=== PATIENT | female | born 1995 | race Caucasian/White ===

== ENCOUNTER 2017-01-05 03:16 | Emergency (ER) | payer MEDICAID ==
[2017-01-05 04:01] LABS: RBC URINE 3 /hpf (0-3); URINE BACTERIA RARE (<OCC); URINE BILIRUBIN NEGATIVE (NEGATIVE); URINE BLOOD NEGATIVE (NEGATIVE); URINE COLOR Yellow (YELLOW); URINE GLUCOSE (UA) NORMAL (Normal); URINE KETONE TRACE mg/dL (NEGATIVE); URINE LEUKOCYTE ESTERASE 1+ Leu/uL (Negative); URINE PROTEIN NEGATIVE (NEGATIVE); WBC URINE 7 /hpf (0-5)
[2017-01-05] MEDS ORDERED: Sodium Chloride 0.9% 500 ML IV ONE (04:06)
[2017-01-05 04:43] LABS: BASO % 0.5 % (0.0-2.0); EOS # 0.1 K/uL (0.0-0.7); EOS % 1.2 % (0.0-4.0); LYMPH # 2.1 K/uL (1.0-4.3); LYMPH % 30.9 % (20.0-40.0); MEAN CELL VOLUME 93.3 fL (81.0-99.0); MEAN CORPUSCULAR HEMOGLOBIN 32.2 pg (27.0-31.0); MEAN CORPUSCULAR HGB CONC 34.5 g/dL (33.0-37.0); MONO # 0.8 K/uL (0.0-0.8); MONO % 12.2 % (0.0-10.0); RED CELL DISTRIBUTION WIDTH 14.3 % (11.5-14.5); WHITE BLOOD COUNT 6.9 K/uL (4.8-10.8)
--- NOTE | 2017-01-05 04:43 | C.PDOC ---
History Of Present Illness 21 year old female who presents to the ER with a complaint of intermittent epigastric pain and vomiting for the past 2 weeks. Patient has not been evaluated for the pain before; denies diarrhea, bloody stool, sick contact, recent travel, new medication, urinary symptoms, neck pain, or vaginal complaints. Time Seen by Provider: 01/05/17 03:35 Chief Complaint (Nursing): Abdominal Pain History Per: Patient History/Exam Limitations: no limitations Onset/Duration Of Symptoms: Days Current Symptoms Are (Timing): Still Present Location Of Pain/Discomfort: Epigastric Radiation Of Pain To:: None Quality Of Discomfort: Unable To Describe Associated Symptoms: Vomiting. denies: Fever, Urinary Symptoms, Other (Neck pain, vaginal complaints) Exacerbating Factors: None Alleviating Factors: None Recent travel outside of the [place]: No Abnormal Vaginal Bleeding: No Past Medical History Reviewed: Historical Data, Nursing Documentation, Vital Signs Vital Signs: Last Vital Signs Temp 97.8 F 01/05/17 03:27 Pulse 76 01/05/17 03:27 Resp 18 01/05/17 03:27 BP 103/67 01/05/17 03:27 Pulse Ox 97 01/05/17 05:19 - Medical History PMH: Asthma Surgical History: No Surg Hx - [facility] Procedures CLOSURE SKIN & SUBCUTANEOUS NEC (01/21/14) Family History: States: Unknown Family Hx - Social History Hx Tobacco Use: No Hx Alcohol Use: No Hx Substance Use: No - Immunization History Hx Tetanus Toxoid Vaccination: Yes Hx Influenza Vaccination: No Hx Pneumococcal Vaccination: No Review Of Systems Constitutional: Negative for: Fever, Chills Gastrointestinal: Positive for: Vomiting, Abdominal Pain. Negative for: Diarrhea, Melena, Hematochezia Genitourinary: Negative for: Dysuria, Frequency, Hematuria, Vaginal Discharge, Vaginal Bleeding Physical Exam - Physical Exam Appears: Non-toxic, No Acute Distress Skin: Normal Color, Warm, Dry Head: Atraumatic, Normacephalic Eye(s): bilateral: Normal Inspection, EOMI Oral Mucosa: Moist Chest: Symmetrical Cardiovascular: Rhythm Regular Respiratory: Normal Breath Sounds, No Rales, No Rhonchi, No Wheezing Gastrointestinal/Abdominal: Bowel Sounds (normal), Soft, Tenderness (Epigastric) , No Distention, No Guarding, No Rebound Neurological/Psych: Oriented x3, Normal Speech, Normal Cognition ED Course And Treatment - Laboratory Results Result Diagrams: 01/05/17 04:41 01/05/17 04:41 O2 Sat by Pulse Oximetry: 97 (Room air) Pulse Ox Interpretation: Normal Progress Note: Blood work, urinalysis, pepcid, IV fluids, and zofran administered. On reevaluation, patient reports her pain has resolved and is able to tolerate PO in the ER. Will discharge home with Rx and instructions to follow up with PMD for further evaluation. Disposition Counseled Patient/Family Regarding: Diagnosis, Need For Followup, Rx Given - Disposition Referrals: [facility] [Outside] Disposition: HOME/ ROUTINE Disposition Time: 05:28 Condition: STABLE Additional Instructions: Increase PO fluids Avoid fried, spicy foods, red meats, caffeine, Advil, motrin Take meds as directed Follow up with PMD or in clinic for GI referral Return to ER if worse Prescriptions: Aluminum Hydroxide/Magnesium H [Maalox 30 ml] 30 ml PO BID #100 ml Famotidine [Pepcid] 20 mg PO DAILY #20 tab Ondansetron [Zofran Odt] 4 mg PO TID #6 odt Instructions: Gastritis (ED) Forms: [employer] (Irish), School Excuse - Clinical Impression Clinical Impression: Gastritis - Scribe Statement The provider has reviewed the documentation as recorded by the Scribe Vitaliy Duran All medical record entries made by the Scribe were at my direction and personally dictated by me. I have reviewed the chart and agree that the record accurately reflects my personal performance of the history, physical exam, medical decision making, and the department course for this patient. I have also personally directed, reviewed, and agree with the discharge instructions and disposition.
[2017-01-05 04:55] LABS: CHLORIDE 101 mmol/L (98-107)
[2017-01-05 04:56] LABS: POTASSIUM 4.2 mmol/L (3.6-5.2); SODIUM 137 mmol/L (132-148)
[2017-01-05 04:58] LABS: ALKALINE PHOSPHATASE 84 U/L (38-126); AST/SGOT 34 U/L (14-36); BILIRUBIN,TOTAL 1.3 mg/dL (0.2-1.3); BLOOD UREA NITROGEN 6 mg/dL (7-17); CARBON DIOXIDE 24 mmol/L (22-30); GFR AFRICAN-AMERICAN > 60; TOTAL PROTEIN 8.9 g/dL (6.3-8.3)
[2017-01-05 04:59] LABS: ALT/SGPT 50 U/L (9-52); CALCIUM 9.9 mg/dl (8.6-10.4); GLUCOSE,RANDOM 89 mg/dL (65-105)
[2017-01-05 05:35] VITALS: BP 103/68; PULSE 57; RESP 16; TEMP 97.9; O2SAT 99
== END 2017-01-05 05:40 | disposition home or self-care (01) ==
LOC: C.ER 03:16
DX: K29.70 Gastritis, unspecified, without bleeding (principal)
CPT/HCPCS: 80053; 81001; 83690; 84703; 85025; 96361; 96374; 96375; 99284; J2405; J7040

== ENCOUNTER 2017-03-29 12:17 | Emergency (ER) | payer MEDICAID ==
[2017-03-29 12:37] VITALS: BMI 24.7
[2017-03-29 12:39] VITALS: TEMP 98.7; O2SAT 98
[2017-03-29] MEDS ORDERED: Lactated Ringer's 1,000 ML IV STA (13:03)
--- NOTE | 2017-03-29 13:04 | C.PDOC ---
History Of Present Illness 21 yo female w/o significant PMHx come in for evaluation of bodyaches, nausea, multiple episodes of non-bilious vomiting and watery, non-bloody diarrhea for past 2 days, (+)mild epigastric pain. Pt sts, was unable to tolerate liquids today. Otherwise, pt denies high fever, lethargy, drooling, cough, SOB, wheezing , hematemesis, melena, back pain, UTI sx, rash, denies recent travel or known sick contact. At the time of evaluation, pt is awake, comfortable, not in any apparent distress Time Seen by Provider: 03/29/17 12:40 Chief Complaint (Nursing): Flu-like Symptoms History Per: Patient Onset/Duration Of Symptoms: Gradual Past Medical History Reviewed: Historical Data, Nursing Documentation, Vital Signs Vital Signs: Last Vital Signs Temp 98.7 F 03/29/17 12:36 Pulse 67 03/29/17 14:23 Resp 18 03/29/17 14:23 BP 111/70 03/29/17 14:23 Pulse Ox 98 03/29/17 14:23 - Medical History PMH: Asthma Surgical History: No Surg Hx - [facility] Procedures CLOSURE SKIN & SUBCUTANEOUS NEC (01/21/14) Family History: States: Unknown Family Hx - Social History Hx Tobacco Use: No Hx Alcohol Use: No Hx Substance Use: No - Immunization History Hx Tetanus Toxoid Vaccination: No Hx Influenza Vaccination: Yes Hx Pneumococcal Vaccination: Yes Review Of Systems Except As Marked, All Systems Reviewed And Found Negative. Constitutional: Positive for: Malaise. Negative for: Fever, Chills ENT: Negative for: Nose Congestion, Throat Pain Cardiovascular: Negative for: Chest Pain Respiratory: Negative for: Cough, Shortness of Breath Gastrointestinal: Positive for: Nausea, Vomiting, Abdominal Pain, Diarrhea. Negative for: Melena, Hematochezia, Hematemesis Genitourinary: Negative for: Dysuria, Frequency Musculoskeletal: Negative for: Neck Pain, Back Pain Skin: Negative for: Rash Neurological: Negative for: Weakness, Numbness, Altered Mental Status, Headache , Dizziness Physical Exam - Physical Exam Appears: Well, Non-toxic, No Acute Distress Skin: Normal Color, Warm, Dry, No Rash Head: Normacephalic Eye(s): bilateral: PERRL Nose: No Flaring, No Discharge Oral Mucosa: Moist, No Drooling Tongue: Normal Appearing Lips: Normal Appearing Throat: No Erythema, No Drooling Neck: Trachea Midline, Supple Cardiovascular: Rhythm Regular Respiratory: No Decreased Breath Sounds, No Accessory Muscle Use, No Stridor, No Wheezing Gastrointestinal/Abdominal: Bowel Sounds (normal), Soft, Tenderness (mild epigastric), No Distention, No Guarding Back: No CVA Tenderness Extremity: Normal ROM, No Deformity, No Swelling Neurological/Psych: Oriented x3, Normal Speech ED Course And Treatment - Laboratory Results Result Diagrams: 03/29/17 13:38 03/29/17 13:38 Lab Interpretation: No Acute Changes Urine POC: Negative O2 Sat by Pulse Oximetry: 98 Pulse Ox Interpretation: Normal Progress Note: On re-eval, pt is afebrile, hemodynamicaly stable. Reports moderate improvement in sx. Non-toxic. Tolerate Po well in ED. PuslEOx 98% RA. ENT: no acute findings. neck: SUpple, (-) meningeal sign. Lungs: CTA B/L , BS equal B/L. Abd: benign, (-) guarding, (-) rebound. Back: (-) CVA tenderness. Blood work review and appears without acute findings. UA (+) UTI. Rocephin given empirically, UCx-pending. Pt advised. ref. to F/u with PMD in 2-3 days for re-eavl. return if any new chanegs. Disposition Counseled Patient/Family Regarding: Studies Performed, Diagnosis, Need For Followup, Rx Given - Disposition Referrals: [facility] [Outside] Disposition: HOME/ ROUTINE Disposition Time: 14:15 Condition: STABLE Additional Instructions: ENCOURAGE FLUIDS TAKE MEDICATION PRESCRIBED FOLLOW UP WITH PMD IN 2-3 DAYS FOR RE-EVALUATION. RETURN TO ED IF ANY WORSENING OR NEW CHANGES. Prescriptions: Cefdinir [Omnicef] 300 mg PO BID #14 cap Cranberry Fruit Extract [Cranberry] 500 mg PO BID #20 capsule Instructions: Urinary Tract Infection in Women (ED) Forms: [facility] (Kyrgyz) - Clinical Impression Clinical Impression: UTI (urinary tract infection)
[2017-03-29] MEDS ORDERED: Lactated Ringer's 1,000 ML ONE (13:29)
[2017-03-29 13:45] LABS: BASO % 0.6 % (0.0-2.0); EOS # 0.3 K/uL (0.0-0.7); EOS % 4.7 % (0.0-4.0); HEMOGLOBIN 15.1 g/dL (11.0-16.0); LYMPH # 2.1 K/uL (1.0-4.3); LYMPH % 37.6 % (20.0-40.0); MEAN CELL VOLUME 98.6 fL (81.0-99.0); MEAN CORPUSCULAR HEMOGLOBIN 32.9 pg (27.0-31.0); MEAN CORPUSCULAR HGB CONC 33.4 g/dL (33.0-37.0); MEAN PLATELET VOLUME 9.2 fL (7.2-11.7); MONO # 0.7 K/uL (0.0-0.8); MONO % 13.1 % (0.0-10.0); NEUT # 2.5 K/uL (1.8-7.0); NRBC % 0.1 % (0.0-2.0); RBC 4.58 Mil/uL (3.80-5.20); RED CELL DISTRIBUTION WIDTH 13.5 % (11.5-14.5); WHITE BLOOD COUNT 5.7 K/uL (4.8-10.8)
[2017-03-29 13:47] LABS: HCG,QUALITATIVE URINE NEGATIVE (NEGATIVE)
[2017-03-29 13:56] LABS: SQUAMOUS EPITHIAL 15 /hpf (0-5); URINE BACTERIA OCC (<OCC); URINE BILIRUBIN NEGATIVE (NEGATIVE); URINE BLOOD 3+ (NEGATIVE); URINE CLARITY Hazy (Clear); URINE COLOR Yellow (YELLOW); URINE GLUCOSE (UA) NORMAL (Normal); URINE LEUKOCYTE ESTERASE 3+ Leu/uL (Negative); URINE NITRATE NEGATIVE (NEGATIVE); URINE PROTEIN 1+ mg/dL (NEGATIVE)
[2017-03-29 14:00] LABS: ALB/GLOB RATIO 0.9 (1.0-2.1); ALT/SGPT 27 U/L (9-52); AST/SGOT 34 U/L (14-36); BLOOD UREA NITROGEN 6 mg/dL (7-17); CALCIUM 8.6 mg/dl (8.6-10.4); GFR AFRICAN-AMERICAN > 60; GFR NON-AFRICAN AMERICAN > 60; LIPASE 111 U/L (23-300)
[2017-03-29 15:51] VITALS: BP 115/72; PULSE 70; RESP 20
== END 2017-03-29 15:46 | disposition home or self-care (01) ==
LOC: C.ER 12:17
DX: N39.0 Urinary tract infection, site not specified (principal)
CPT/HCPCS: 80053; 81001; 83690; 84703; 85025; 87086; 96361; 96365; 96375; 99284; J0696; J2405; J7120

== ENCOUNTER 2017-09-22 22:19 | Emergency (ER) | payer MEDICAID ==
[2017-09-22 22:19] VITALS: BMI 24.7
[2017-09-22 22:35] VITALS: PULSE 66; TEMP 97.8; O2SAT 98
--- NOTE | 2017-09-22 22:58 | C.PDOC ---
"History Of Present Illness Patient seen tonight due to lower abominal pain and scanty vaginal spotting after sexz tonite. Patien is . Chief Complaint (Nursing): Abdominal Pain Past Medical History Vital Signs: Last Vital Signs Temp 97.8 F 09/22/17 22:29 Pulse 66 09/22/17 22:29 Resp 20 09/22/17 22:29 BP 105/70 09/22/17 22:29 Pulse Ox 98 09/23/17 00:20 - Medical History PMH: Asthma Surgical History: No Surg Hx - [facility] Procedures CLOSURE SKIN & SUBCUTANEOUS NEC (01/21/14) Family History: States: Unknown Family Hx - Social History Hx Tobacco Use: No Hx Alcohol Use: No Hx Substance Use: No - Immunization History Hx Tetanus Toxoid Vaccination: No Hx Influenza Vaccination: No Hx Pneumococcal Vaccination: No Review Of Systems Constitutional: Negative for: Fever, Chills, Sweats Cardiovascular: Negative for: Chest Pain, Palpitations, Orthopnea Respiratory: Negative for: Cough, Shortness of Breath Gastrointestinal: Positive for: Abdominal Pain. Negative for: Nausea, Vomiting , Diarrhea, Constipation, Melena, Hematochezia, Hematemesis, Rectal Pain Genitourinary: Positive for: Vaginal Bleeding, Pelvic Pain. Negative for: Dysuria, Frequency, Incontinence, Hematuria, Rash Musculoskeletal: Negative for: Neck Pain, Shoulder Pain, Arm Pain Skin: Negative for: Rash, Lesions Neurological: Negative for: Weakness, Numbness, Incoordination, Change in Speech , Confusion, Seizures, Headache Psych: Negative for: Anxiety, Depression, Psychosis, Suicidal ideation, Withdrawal Physical Exam - Physical Exam Appears: Well, Non-toxic, No Acute Distress Skin: Normal Color, Warm, Dry Eye(s): bilateral: Normal Inspection, PERRL, EOMI Nose: Normal Throat: Normal Neck: Normal Chest: Symmetrical, No Deformity, No Tenderness Cardiovascular: Rhythm Regular, No Edema, No Murmur Respiratory: Normal Breath Sounds Gastrointestinal/Abdominal: Normal Exam, Tenderness (mild hypogastric tenderness ), No Mass, No Distention, No Guarding, No Rebound Back: Normal Inspection Pelvic: Normal External Exam, Normal Speculum Exam, No Vaginal Bleeding, No Vaginal Discharge, No Cervical Motion Tenderness, No Cervix Open, No Adnexal Tenderness, Other (mild hypogastric tendeness) Extremity: Normal ROM Neurological/Psych: Oriented x3, Normal Speech, Normal Cognition Gait: Steady ED Course And Treatment - Laboratory Results Result Diagrams: 09/22/17 23:04 09/22/17 23:04 O2 Sat by Pulse Oximetry: 98 (ON RA) Pulse Ox Interpretation: Normal - CT Scan/US Pelvic US Other Rad Studies (CT/US): Read By Radiologist, Radiology Report Reviewed CT/US Interpretation: EXAM: US , Transvaginal. CLINICAL HISTORY: 22 years old, female; Signs and symptoms; Lmp or gestational age (in weeks): 6-9-18 ; Other: Vag. bleed; ; Additional info: Vaginal bleed/ pain. TECHNIQUE : Real-time transvaginal obstetrical ultrasound of the maternal pelvis and a first trimester . with image documentation. Transvaginal imaging was used for better evaluation of the fetus and. adnexa. COMPARISON: No relevant prior studies available. FINDINGS: Gestation: There is an intrauterine gestational sac with the developing fetus. Heart rate 97 bpm. A yolk sac is visible. The gestational sac measures 1.3 cm 5 weeks 4 days gestational age. There is a pole CRL 2.9 mm 5 weeks 6 days JYALIN 05/20/2018. Clinical gestational age 4 weeks 5 days JAYLIN 05/27/2018. Placenta/amniotic fluid: Cannot be adequately evaluated due to the early gestational age. Uterus/cervix: Unremarkable. No myometrial mass. 9.2 cm x 5.4 cm x 5.4 cm. The cervix measures 3.2 cm the cervical os is closed. Ovaries: RIGHT ovary measures 5.9 cm x 2.6 cm x 3.1 cm. Simple cyst 2.3 cm x 1.5 cm x 1.9 cm. Corpus luteum cyst 1.9 cm 1.9 cm x 2.3 cm. LEFT ovary is unremarkable measuring 2.4 cm x 2.4 cm x 1.2 cm. Small echogenic calcifications are seen. Free fluid: No free fluid. IMPRESSION: 1. Single living intrauterine gestation. 2. Gestational age 5 weeks 6 days JAYLIN 05/20/2018. OMARI ESPINOSA | Preliminary Radiology Report. CONFIDENTIALITY STATEMENT. This report is intended only for the use of the referring physician, and only in accordance with law, If you received this in error, call [phone]. Page 2 of 2. 3. RIGHT ovarian corpus luteum cyst and benign cyst. 4. Negative LEFT ovary. 5. Negative uterus and cervix. Thank you for allowing us to participate in the care of your patient. Dictated and Authenticated by: Shadi Ornelas MD. 09/23/2017 12:16 AM Eastern Time ([place] & [place]) Disposition Counseled Patient/Family Regarding: Diagnosis - Disposition Referrals: [facility] [Outside] Disposition: HOME/ ROUTINE Disposition Time: 00:20 Condition: STABLE Instructions: Bleeding With (DC) Forms: [facility] (Uzbek), Gen Discharge Inst Argentine Print Language: CAPE VERDEAN - POA Present On Arrival: None - Clinical Impression Clinical Impression: Vaginal bleeding affecting early"
[2017-09-22 23:10] LABS: BASO % 0.6 % (0.0-2.0); EOS # 0.1 K/uL (0.0-0.7); HEMOGLOBIN 14.2 g/dL (11.0-16.0); LYMPH # 2.1 K/uL (1.0-4.3); LYMPH % 28.4 % (20.0-40.0); MEAN CELL VOLUME 96.7 fL (81.0-99.0); MEAN CORPUSCULAR HEMOGLOBIN 33.4 pg (27.0-31.0); MEAN CORPUSCULAR HGB CONC 34.6 g/dL (33.0-37.0); MEAN PLATELET VOLUME 9.2 fL (7.2-11.7); MONO % 12.9 % (0.0-10.0); NEUT # 4.3 K/uL (1.8-7.0); NEUT % 57.1 % (50.0-75.0); RBC 4.26 Mil/uL (3.80-5.20); RED CELL DISTRIBUTION WIDTH 11.8 % (11.5-14.5); WHITE BLOOD COUNT 7.5 K/uL (4.8-10.8)
[2017-09-22 23:15] LABS: INR 1.1
[2017-09-22 23:23] LABS: ALB/GLOB RATIO 1.3 (1.0-2.1); ALBUMIN 4.3 g/dL (3.5-5.0); ALT/SGPT 25 U/L (9-52); AST/SGOT 22 U/L (14-36); BLOOD UREA NITROGEN 9 mg/dL (7-17); GFR AFRICAN-AMERICAN > 60; GFR NON-AFRICAN AMERICAN > 60
[2017-09-23 00:33] LABS: SQUAMOUS EPITHIAL 1 /hpf (0-5); URINE BILIRUBIN NEGATIVE (NEGATIVE); URINE BLOOD NEGATIVE (NEGATIVE); URINE CLARITY Clear (Clear); URINE COLOR Straw (YELLOW); URINE GLUCOSE (UA) NORMAL (Normal); URINE LEUKOCYTE ESTERASE NEG Leu/uL (Negative); URINE PROTEIN NEGATIVE (NEGATIVE); URINE UROBILINOGEN NORMAL mg/dL (0.2-1.0)
[2017-09-23 00:47] VITALS: BP 108/67; RESP 16
--- NOTE | 2017-09-23 09:56 | US ---
Date of service: 09/22/2017 PROCEDURE: Pelvic ultrasound HISTORY: vaginal bleed/ pain COMPARISON: None available. TECHNIQUE: Standard protocol for this study/examination. FINDINGS: LMP: 08/20/2017 Prior examinations from the current : None TECHNIQUE: Real-time 2D imaging, duplex and color Doppler. FINDINGS: Cardiac activity: Present Rate: 98 BPM Measurements: Anita rump length: 0.29 cm Gestational age based on CRL 5 weeks 6 days Gestational age 5 weeks 4 days based on gestational sac measurement 1.33 cm Gestational age derived from LMP: 4 weeks 5 days JAYLIN based on LMP: 05/27/2018 JAYLIN based on biometry: 12/11/2018 Gestational concordance documented Yolk sac identified Uterus: Unremarkable. Cervix: No Cervical abnormalities: Negative examination for cervical dilatation or effacement. Closed cervix measuring 3.22 cm Subchorionic hemorrhage: None UTERUS: 5.4 x 5.7 x 9.2 cm. ADNEXA: Right: 2.6 x 3.1 cm. Two simple cysts measuring 1.5 x 1.9 x 3.3 cm and 1.9 x 1.9 x 2.3 cm Normal Doppler arterial waveform documented. Left: 1.2 x 2.4 x 2.4 cm. Normal Doppler arterial waveform documented Fluid in the cul-de-sac: None. IMPRESSION: Five weeks 5 days live intrauterine gestation. bradycardia noted. Additional benign and/or incidental findings described above. Concordant results (preliminary interpretation) provided by [facility]. Procedure Completed: 23:20 Preliminary ([facility]) Report: Dictated and Authenticated: 00:16 September 23, 2017. Final Interpretation: 09:54
== END 2017-09-23 00:49 | disposition home or self-care (01) ==
LOC: C.ER 22:19
DX: O20.9 Hemorrhage in early pregnancy, unspecified (principal); Z3A.01 Less than 8 weeks gestation of pregnancy
CPT/HCPCS: 76817; 80053; 81001; 84702; 84703; 85025; 85610; 85730; 86850; 86900; 96374; 99285; J2405

== ENCOUNTER 2017-12-05 01:42 | Emergency (ER) | payer MEDICAID ==
[2017-12-05 01:42] VITALS: BMI 24.7
[2017-12-05 02:07] LABS: HCG,QUALITATIVE URINE POSITIVE (NEGATIVE)
[2017-12-05] MEDS ORDERED: Sodium Chloride 0.9% 1,000 ML IV ONE (02:09)
[2017-12-05 02:11] LABS: SQUAMOUS EPITHIAL 30 /hpf (0-5); URINE BACTERIA RARE (<OCC); URINE BILIRUBIN NEGATIVE (NEGATIVE); URINE BLOOD NEGATIVE (NEGATIVE); URINE CLARITY Hazy (Clear); URINE COLOR Yellow (YELLOW); URINE GLUCOSE (UA) NORMAL (Normal); URINE LEUKOCYTE ESTERASE 3+ Leu/uL (Negative); URINE PROTEIN NEGATIVE (NEGATIVE)
[2017-12-05] MEDS ORDERED: cefTRIAXone IV 1 gm in Dextros 50 ML IV STA (02:13)
[2017-12-05] MEDS ORDERED: Sodium Chloride 0.9% 1,000 ML ONE (02:16)
[2017-12-05 02:25] LABS: BASO % 0.6 % (0.0-2.0); EOS # 0.1 K/uL (0.0-0.7); EOS % 1.7 % (0.0-4.0); LYMPH # 1.6 K/uL (1.0-4.3); LYMPH % 19.9 % (20.0-40.0); MEAN CELL VOLUME 93.8 fL (81.0-99.0); MEAN CORPUSCULAR HEMOGLOBIN 33.1 pg (27.0-31.0); MEAN CORPUSCULAR HGB CONC 35.3 g/dL (33.0-37.0); MONO # 1.4 K/uL (0.0-0.8); NEUT # 4.9 K/uL (1.8-7.0); NEUT % 60.8 % (50.0-75.0); RBC 3.34 Mil/uL (3.80-5.20); RED CELL DISTRIBUTION WIDTH 12.3 % (11.5-14.5)
[2017-12-05] MEDS ORDERED: cefTRIAXone 1 gm 1 GM/100 ML BAG IVPB ONE (02:29)
[2017-12-05 02:48] LABS: ALB/GLOB RATIO 1.1 (1.0-2.1); ALBUMIN 3.8 g/dL (3.5-5.0); BLOOD UREA NITROGEN 9 mg/dL (7-17); CALCIUM 9.6 mg/dl (8.6-10.4); GFR NON-AFRICAN AMERICAN > 60
[2017-12-05 02:51] LABS: ALT/SGPT 104 U/L (9-52); AST/SGOT 92 U/L (14-36)
--- NOTE | 2017-12-05 02:54 | C.PDOC ---
History Of Present Illness 22 year old female presents to the ED for evaluation of lower back pain and abdominal pain which began two days ago. Patient also complains of vomiting today. Patient denies dysuria, hematuria, vaginal bleeding/discharge. Patient states she is currently ; she notes her last menstrual period was . Time Seen by Provider: 12/05/17 01:57 Chief Complaint (Nursing): Abdominal Pain History Per: Patient History/Exam Limitations: no limitations Onset/Duration Of Symptoms: Hrs, Days Current Symptoms Are (Timing): Still Present Additional History Per: Patient Past Medical History Reviewed: Historical Data, Nursing Documentation, Vital Signs Vital Signs: Last Vital Signs Temp 98.5 F 12/05/17 03:20 Pulse 83 12/05/17 03:20 Resp 17 12/05/17 03:20 BP 115/68 12/05/17 03:20 Pulse Ox 99 12/05/17 04:16 - Medical History PMH: Asthma Denies: Chronic Kidney Disease Surgical History: No Surg Hx - [facility] Procedures CLOSURE SKIN & SUBCUTANEOUS NEC (01/21/14) Family History: States: Unknown Family Hx - Social History Hx Tobacco Use: No Hx Alcohol Use: No Hx Substance Use: No - Immunization History Hx Tetanus Toxoid Vaccination: No Hx Influenza Vaccination: No Hx Pneumococcal Vaccination: No Review Of Systems Gastrointestinal: Positive for: Nausea, Vomiting, Abdominal Pain Genitourinary: Negative for: Dysuria, Hematuria, Vaginal Discharge, Vaginal Bleeding Neurological: Positive for: Dizziness Physical Exam - Physical Exam Appears: Non-toxic, No Acute Distress Skin: Normal Color, Warm, Dry Head: Atraumatic, Normacephalic Eye(s): bilateral: Normal Inspection Oral Mucosa: Moist Neck: Supple Chest: Symmetrical, No Deformity, No Tenderness Cardiovascular: Rhythm Regular, No Murmur Respiratory: Normal Breath Sounds, No Rales, No Rhonchi, No Wheezing Gastrointestinal/Abdominal: Soft, No Tenderness, No Guarding, No Rebound Back: No Vertebral Tenderness, No Paraspinal Tenderness Extremity: Normal ROM, Capillary Refill (less than 2 seconds ) Neurological/Psych: Oriented x3, Normal Speech Gait: Steady ED Course And Treatment - Laboratory Results Result Diagrams: 12/05/17 02:23 12/05/17 02:23 O2 Sat by Pulse Oximetry: 99 (on RA) Pulse Ox Interpretation: Normal Medical Decision Making Medical Decision Making: Impression: 22 year old female with lower back and abdominal pain Plan: * bloodwork * urinalysis * Zofran IVP * Rocephin IV * IV fluids Progress: Bloodwork and urinalysis ordered and reviewed. UA shows UTI. Protonix IVP, Reglan IV, Zofran IVP and IV Fluids given. On reassessment, patient is resting comfortably, tolerating PO intake, and reports an improvement in her symptoms. Patient is stable for discharge. She is advised to follow up with her PMD within 1-2 days for further evaluation. Disposition Counseled Patient/Family Regarding: Diagnosis, Need For Followup, Rx Given - Disposition Referrals: [facility] [Outside] [facility] [Outside] Disposition: HOME/ ROUTINE Disposition Time: 02:54 Condition: STABLE Additional Instructions: Take antibiotic twice daily and be sure to finish taking all of antibiotic. Drink plenty of fluids. Follow up with your primary medical doctor or clinic in 2-5 days for further evaluation Prescriptions: Nitrofurantoin Macrocrystals [Macrobid] 1 cap PO BID #14 cap Instructions: Urinary Tract Infection, Adult (DC) Forms: [employer] (Lithuanian) - POA Present On Arrival: None - Clinical Impression Clinical Impression: UTI (urinary tract infection) - PA / SENIOR SALES ASSOCIATE / Resident Statement MD/DO has reviewed & agrees with the documentation as recorded. - Scribe Statement The provider has reviewed the documentation as recorded by the Scribe (Megan Harvey) All medical record entries made by the Scribe were at my direction and personally dictated by me. I have reviewed the chart and agree that the record accurately reflects my personal performance of the history, physical exam, medical decision making, and the department course for this patient. I have also personally directed, reviewed, and agree with the discharge instructions and disposition.
[2017-12-05 03:21] VITALS: BP 115/68; PULSE 83; RESP 17; TEMP 98.5
[2017-12-05 04:12] VITALS: O2SAT 99
== END 2017-12-05 03:32 | disposition home or self-care (01) ==
LOC: C.ER 01:42
DX: N39.0 Urinary tract infection, site not specified (principal)
CPT/HCPCS: 80053; 81001; 84703; 85025; 87086; 96365; 96375; 99285; J0696; J2405; J7030

== ENCOUNTER 2017-12-09 21:32 | Emergency (ER) | payer MEDICAID ==
[2017-12-09 21:33] VITALS: BMI 24.7
[2017-12-09 21:44] VITALS: O2SAT 99
--- NOTE | 2017-12-09 22:01 | C.PDOC ---
History Of Present Illness 22 y/o F c PMHx 14 weeks p/w lower back radiating across lower abdomen associated with urinary frequency. Denies vaginal bleeding. Denies dysuria. Denies fever, chills. States allergic to acetaminophen. Time Seen by Provider: 12/09/17 21:55 Chief Complaint (Nursing): Abdominal Pain Past Medical History Vital Signs: Last Vital Signs Temp 98.5 F 12/09/17 21:38 Pulse 76 12/09/17 21:38 Resp 16 12/09/17 21:38 BP 109/66 12/09/17 21:38 Pulse Ox 99 12/09/17 21:38 - Medical History PMH: Asthma Denies: Chronic Kidney Disease - [facility] Procedures CLOSURE SKIN & SUBCUTANEOUS NEC (01/21/14) Family History: States: Unknown Family Hx - Social History Hx Tobacco Use: No Hx Alcohol Use: No Hx Substance Use: No - Immunization History Hx Tetanus Toxoid Vaccination: No Hx Influenza Vaccination: Yes Hx Pneumococcal Vaccination: No Review Of Systems Except As Marked, All Systems Reviewed And Found Negative. Constitutional: Negative for: Fever Respiratory: Negative for: Shortness of Breath Physical Exam - Physical Exam Additional Physical Exam Comments: Gen: NAD Head: NC/AT Eyes: PERRL ENT: MMM Neck: Supple Chest: No tenderness CV: Regular rate Lungs: CTA b/l Abd: Soft, NT Back: No CVA tenderness Skin: No rash Extremities: No edema Neuro: Alert, no focal deficit ED Course And Treatment - Laboratory Results Result Diagrams: 12/09/17 22:32 12/09/17 22:32 O2 Sat by Pulse Oximetry: 99 Medical Decision Making Medical Decision Making: Check UA for UTI. Check US. US Impression: 1. Single, live intrauterine gestation with a gestational age of 17 weeks 4 days. 2. heart rate is 158 beats per minute. 3. Limited anatomy. 4. No bleed. Macrobid administered and prescribed. F/u OBGYN, return to ED for worsening pain, fever, intractible vomiting, or any other problem. Disposition - Disposition Disposition: HOME/ ROUTINE Disposition Time: 00:31 Condition: STABLE Prescriptions: Nitrofurantoin Macrocrystals [Macrobid] 100 mg PO BID #20 cap Instructions: Urinary Tract Infections in Adults Forms: [employer] (Greek) - Clinical Impression Clinical Impression: UTI (urinary tract infection)
[2017-12-09 22:37] LABS: BASO % 0.3 % (0.0-2.0); EOS # 0.2 K/uL (0.0-0.7); EOS % 2.3 % (0.0-4.0); HEMOGLOBIN 11.9 g/dL (11.0-16.0); LYMPH # 2.2 K/uL (1.0-4.3); LYMPH % 27.1 % (20.0-40.0); MEAN CELL VOLUME 94.3 fL (81.0-99.0); MEAN CORPUSCULAR HEMOGLOBIN 33.6 pg (27.0-31.0); MEAN CORPUSCULAR HGB CONC 35.6 g/dL (33.0-37.0); MEAN PLATELET VOLUME 9.9 fL (7.2-11.7); MONO # 0.9 K/uL (0.0-0.8); MONO % 11.4 % (0.0-10.0); NEUT # 4.9 K/uL (1.8-7.0); NEUT % 58.9 % (50.0-75.0); RBC 3.53 Mil/uL (3.80-5.20); RED CELL DISTRIBUTION WIDTH 12.6 % (11.5-14.5); WHITE BLOOD COUNT 8.3 K/uL (4.8-10.8)
[2017-12-09 22:41] LABS: SQUAMOUS EPITHIAL 9 /hpf (0-5); URINE BACTERIA RARE (<OCC); URINE BILIRUBIN NEGATIVE (NEGATIVE); URINE BLOOD NEGATIVE (NEGATIVE); URINE CLARITY Hazy (Clear); URINE COLOR Straw (YELLOW); URINE GLUCOSE (UA) NORMAL (Normal); URINE LEUKOCYTE ESTERASE 3+ Leu/uL (Negative); URINE PROTEIN NEGATIVE (NEGATIVE); URINE UROBILINOGEN NORMAL mg/dL (0.2-1.0)
[2017-12-09 22:53] LABS: ALB/GLOB RATIO 1.2 (1.0-2.1); ALBUMIN 4.4 g/dL (3.5-5.0); ALT/SGPT 142 U/L (9-52); AST/SGOT 99 U/L (14-36); BLOOD UREA NITROGEN 7 mg/dL (7-17); CALCIUM 10.5 mg/dl (8.6-10.4); GFR NON-AFRICAN AMERICAN > 60
[2017-12-10 00:44] VITALS: BP 103/66; PULSE 84; RESP 20; TEMP 98.7
[2017-12-10] MEDS ORDERED: cefTRIAXone 2 GM in Sodium Chloride 0.9% 100 ML IVPB STA (00:45)
[2017-12-10] MEDS ORDERED: CEFTRIAXONE IVPB ONE ×2 (00:51→01:00)
--- NOTE | 2017-12-10 16:55 | US ---
Date of service: 12/09/2017 PROCEDURE: Second trimester ultrasound HISTORY: abd pain in COMPARISON: 09/22/2017. TECHNIQUE: Standard protocol for this study/examination. FINDINGS: Breech presentation. Posterior and fundal placenta. No evidence of abruption or previa Gestational age derived from LMP 16 weeks 6 days. JAYLIN 05/27/2018. Gestational age derived from the following biometric parameters 17 weeks 4 days. JAYLIN 05/15/2018 Biparietal diameter 3.85 cm Head circumference 14.07 cm Abdominal circumference 12.08 cm Femur length 2.51 cm Estimated weight 203.8 g Calculated cardiac rate 159 beats per min. Closed cervix measuring 3.23 cm IMPRESSION: Live intrauterine gestation. Adequate interval progression compared to the prior study. Concordant findings (preliminary report) provided by FAB[facility] GREGORIO.
== END 2017-12-10 01:21 | disposition home or self-care (01) ==
LOC: C.ER 21:32
DX: O23.42 Unspecified infection of urinary tract in pregnancy, second trimester (principal); Z3A.17 17 weeks gestation of pregnancy
CPT/HCPCS: 76815; 80053; 81001; 84702; 85025; 86850; 86900; 87086; 96374; 99284; J0696